=== PATIENT | male | born 1960 | race Caucasian/White ===

== ENCOUNTER → 2019-12-02 13:06 | Outpatient (BNVA) | payer OTHER, SELFPAY | PROVIDERS: PCP Family Medicine; Referring Provider Family Medicine; Visit Provider Orthopaedic Surgery | DX: M22.42 Chondromalacia patellae, left knee (principal); M25.562 Pain in left knee | CPT/HCPCS: 73560; 73565 ==

== ENCOUNTER 2019-12-07 14:28 | Outpatient (CLI) | payer OTHER, SELFPAY ==
--- NOTE | 2019-12-07 16:00 | MR_ITS ---
WS: [id number] MRI LEFT KNEE NONCONTRAST TECHNIQUE: Axial PD, coronal PD fat sat, coronal PD, sagittal PD, and sagittal PD fat-sat images obta ined. CLINICAL INFORMATION: pain COMPARISON: None. FINDINGS: Distal quadriceps and patella tendons are intact. Hypertrophic patella. Anterior cruciate ligament is intact. Normal PCL. Mild to moderate chronic thinning of the medial and lateral meniscus. No acute a ppearing meniscal tears No edema in the tibial plateau. 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 Moderate cho ndromalacia lateral joint compartment. Advanced chondromalacia patella. No subchondral edema. Chondro malacia worse in the lateral patella facet. Medial and lateral collateral ligaments are intact. Hypertrophic changes along the joint line. Normal popliteal fossa. MR/MR knee LT wo con* [id number] IMPRESSION: 1. Anterior and posterior cruciate ligaments are intact. 2. Mild to moderate chronic thinning of the medial and lateral meniscus. No ac alda appearing meniscal tears. 3. Advanced chondromalacia patella worse involving the lateral patella facet. 4. Moderate degenerative narrowing involving the medial and lateral joint comp artments with advanced chondromalacia worse involving the medial joint compartm ent. 5. Medial and lateral collateral ligaments appear intact.
== END 2019-12-07 14:29 | disposition home or self-care (01) ==
LOC: RADSHAW 14:29
PROVIDERS: PCP Family Medicine; Visit Provider Orthopaedic Surgery
DX: M22.42 Chondromalacia patellae, left knee (principal); M25.562 Pain in left knee
CPT/HCPCS: 73721

== ENCOUNTER → 2020-11-27 10:19 | Outpatient (BNVA) | payer OTHER, SELFPAY | PROVIDERS: PCP Family Medicine; Referring Provider Emergency Medicine Emergency Medical Services; Visit Provider Orthopaedic Surgery | DX: M16.0 Bilateral primary osteoarthritis of hip (principal); M25.551 Pain in right hip | CPT/HCPCS: 73502 ==

== ENCOUNTER 2022-05-07 16:12 | Emergency (ER) | payer OTHER, SELFPAY ==
[2022-05-07 17:17] VITALS: BP 174/97; PULSE 84; RESP 18; TEMP 36.6; O2SAT 96; BMI 30.7
--- NOTE | 2022-05-07 17:46 | ED_ITS ---
HPI - Back Pain/Injury General: Chief Complaint: Back Pain/Injury Stated Complaint: back pain Time Seen by Provider: 05/07/22 17:45 History of Present Illness: 61-year-old male patient comes in today for complaints of injury to the mid to low back. Patient reports on Friday he had fallen off his 4 phipps and since then has had some mid back pain. Patient reports some occasional back pain but nothing chronic and no surgeries. Patient denies any loss of bowel or bladder control. Review of Systems General: Reports: 10 or more systems reviewed and unremarkable except in HPI and below Musc: Reports: back pain; Denies: neck pain PFS ED PFSH: Family History Mother Diabetes Father Brain aneurysm Social History Smoking and tobacco status: never smoked Alcohol intake: never Physical Exam Const: COMMON NORMALS: alert Neck/C-Spine: COMMON NORMALS: full ROM Resp: COMMON NORMALS: normal respiratory effort and clear to auscultation bilaterally AUSCULTATION: clear to auscultation bilaterally Cardio: COMMON NORMALS: regular rate RATE: regular rate Back/Pelvis: THORACIC SPINE/UPPER BACK: Yes thoracic spinal tenderness and Yes paraspinal muscle tenderness LUMBAR SPINE/LOWER BACK: Yes lumbar spinal te nderness and Yes paraspinal muscle tenderness Extremity: COMMON NORMALS: normal to inspection Neuro: SENSORIUM/ORIENTATION: Yes alert Skin: COMMON NORMALS: no rashes or lesions noted GENERAL SKIN EXAM: no rashes or lesions noted Course Vital Signs: Vital signs: Vital Signs Temperature 98 F 05/07/22 17:17 Pulse Rate 84 05/07/22 17:17 Respiratory Rate 18 05/07/22 17:17 Blood Pressure 174/97 05/07/22 17:17 Pulse Oximetry 96 05/07/22 17:17 MDM - Back Pain/Injury Medical Decision Making 61-year-old male patient comes in today with mid to low back pain. Patient reports falling off his 4 phipps on Friday and since then has had mid to low back pain. Patient does have a history of back pain but no history of surgeries or other injuries. On exam patient has tenderness along the lower thoracic and and lumbar spine. Muscle tenderness is also noted. Vital signs are normal. Patient denies any loss of bowel or bladder control. Differential diagnosis includes contusion, fracture, intervertebral disc disease, facet arthropathy. X-rays noted no acute vertebral fracture. X-rays will be reviewed by radiologist. Patient was recommended to follow-up with primary care for further treatment. Patient reported understanding of care plan and need for follow-up or return to the ER. Discharge Plan Discharge Patient Disposition: Home Clinical Impression: Contusion of back Qualifiers: Encounter type: initial encounter Laterality: unspecified laterality Qualified Code(s): S20.229A - Contusion of unspecified back wall of thorax, initial encounter Condition: Stable Prescriptions: New diclofenac sodium 75 mg tablet,delayed release (DR/EC) 75 mg PO BID Qty: 20 0RF hydrocodone-acetaminophen 5-325 mg tablet 1 tab PO Q6H PRN (Reason: pain (scale score 7-10)) Qty: 10 0RF No Action betamethasone acet,sod phos [Celestone Soluspan] 6 mg/mL suspension 6 mg INTRA-NIELS ONCE Qty: 1 0RF bupivacaine (PF) 0.5 % (5 mg/mL) solution 5 mg INTRA-NIELS ONCE Qty: 2 0RF lidocaine (PF) 10 mg/mL (1 %) solution 10 mg INTRA-NIELS ONCE Qty: 2 0RF metformin PO 0RF glipizide PO 0RF cholecalciferol (vitamin D3) PO 0RF hydrocodone-acetaminophen PO 0RF betamethasone acet,sod phos [Celestone Soluspan] 6 mg/mL suspension 6 mg intra-articular ONCE Qty: 1 0RF lidocaine (PF) 10 mg/mL (1 %) solution 10 mg intra-articular ONCE Qty: 2 0RF ropivacaine (PF) 5 mg/mL (0.5 %) solution 2 ml intra-articular ONCE Qty: 2 0RF Discharge Orders: Discharge ED (Routine); Ordered 05/07/22 Ordered By: Wayne Marsh Referrals: Wayne Nelson [Primary Care Provider] - Discharge Diet: Usual diet Discharge Activity: Increase activity as tolerated Patient Instructions: Back Pain (ED), Opioid Safety Activity Restrictions/Additional Instructions: Activity as tolerated. Gentle stretching and range of motion exercises. Avoid heavy lifting or straining of the back. Drink plenty of water with medication. Follow-up with primary care for further instruction. Return to ER for new concerns. Stand Alone Forms: Work/School Release Coding Level of Care Code ED Trimmer Buffing Wheel for Katiuska Fwd Exam Detailed
--- NOTE | 2022-05-07 18:23 | XRR_ITS ---
PROCEDURE INFORMATION: Exam: XR Thoracic Spine Exam date and time: 05/07/2022 6:26 PM Age: 61 years old Clinical indication: Injury or trauma; Fall; Blunt trauma (contusions or hematomas) TECHNIQUE: Imaging protocol: Radiologic exam of the thoracic spine. Views: 3 views. COMPARISON: DX XR lumbar spine 2-3V* [id number] 07/18/2020 11:23 AM FINDINGS: Bones/joints: Normal. No acute fracture. Normal alignment. Soft tissues: Unremarkable. XR/XR thoracic spine 3V* [id number] IMPRESSION: No acute findings.
--- NOTE | 2022-05-07 18:23 | XRR_ITS ---
PROCEDURE INFORMATION: Exam: XR Lumbosacral Spine Exam date and time: 05/07/2022 6:35 PM Age: 61 years old Clinical indication: Injury or trauma; Fall; Blunt trauma (contusions or hematomas) TECHNIQUE: Imaging protocol: Radiologic exam of the lumbosacral spine. Views: 2 or 3 views. COMPARISON: DX XR lumbar spine 2-3V* [id number] 07/18/2020 11:23 AM FINDINGS: Bones/joints: Mild rightward curvature. The vertebral body stature appears intact. No definite fracture. Soft tissues: Unremarkable. Vasculature: Arterial calcifications. XR/XR lumbar spine 2-3V* [id number] IMPRESSION: No acute findings.
[2022-05-07 19:08] VITALS: RESP 16
== END 2022-05-07 19:09 | disposition home or self-care (01) ==
PROVIDERS: Emergency Provider Nurse Practitioner Family; PCP Family Medicine
DX: S20.229A Contusion of unspecified back wall of thorax, initial encounter (principal); V86.95XA Unspecified occupant of 3- or 4- wheeled all-terrain vehicle (ATV) injured in nontraffic accident, initial encounter
CPT/HCPCS: 72072; 72100; 99283

== ENCOUNTER 2023-11-24 11:53 | Emergency (ER) | payer OTHER, SELFPAY ==
[2023-11-24 11:59] VITALS: BP 177/115; PULSE 83; RESP 16; TEMP 36.7; O2SAT 97; BMI 29.9
--- NOTE | 2023-11-24 12:11 | CT_ITS ---
WS: [id number] CT HEAD NONCONTRAST HISTORY: Symptoms of acute stroke TECHNIQUE: Contiguous axial imaging performed through the brain in 2.5 mm imaging. Bone and soft tiss ue windows. Sagittal and coronal reformats reviewed. All CT scans at [facility] use at least one of these dose optimization techniques: automated exposure control; mA and/or kV adjustment per pa tient size (includes targeted exams where dose is matched to clinical indication); or iterative recon struction. DLP: 1084.31 mGy COMPARISON: None available. No acute intracranial hemorrhage, midline shift or mass effect. Mild atrophy and small vessel ischemic disease. Mild cerebellar atrophy. Ventricles: Normal size with no hydrocephalus. Scattered atherosclerotic plaque and calcifications to the cavernous carotid arteries. Additional justin que in the middle cerebral arteries. Paranasal sinuses: As visualized are clear. Mastoid air cells: Well pneumatized. Calvarium and scalp: Skull is intact with no soft tissue edema or swelling. IMPRESSION: 1. No acute intracranial hemorrhage or edema. 2. Mild atrophy and small vessel ischemic disease. 3. Atherosclerotic plaque noted in the distal carotid arteries and a few foci of plaque also in the middle cerebral arteries. No acute infarct identified.
--- NOTE | 2023-11-24 12:24 | ECG_ITS ---
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 Measurements Intervals [place] Rate: 79 P: 17 RI: 152 QRS: -22 QRSD: 85 T: 5 QT: 356 QTc: 409 Interpretive Statements SINUS RHYTHM BORDERLINE LEFT AXIS DEVIATION [QRS AXIS < -20] No previous ECG available for comparison Electronically Signed On 11-24-2023 14:19:11 COLOR TESTER by Neel Bhatti M.D. [id number]
[2023-11-24 12:30] VITALS: BP 151/86; PULSE 83; O2SAT 93
[2023-11-24 12:33] LABS: Basophils # 0.1 10^3/uL (0.0-0.1); Basophils % 0.8 %; Eosinophils # 0.3 10^3/uL (0.0-0.8); Eosinophils % 3.1 %; Lymphocytes # 1.6 10^3/uL (0.8-4.8); Lymphocytes % 17.7 %; Mean Corpuscular HGB Conc 34.7 g/dL (30-55); Mean Corpuscular Hemoglobin 30.9 pg (27-33); Mean Corpuscular Volume 89.1 fl (82-101); Mean Platelet Volume 9.4 fL (7.4-10.4); Monocytes # 0.6 10^3/uL (0.2-0.9); Monocytes % 7.1 %; Neutrophils # 6.34 10^3/uL (1.8-7.7); Nucleated Red Blood Cells % 0 %; Platelet Count 226 10^3/cmm (157-399); Red Blood Count 5.05 10^6/uL (3.85-5.65); Red Cell Distribution Width 11.7 % (12.1-15.1); White Blood Count 8.93 10^3/uL (3.29-11.43)
--- NOTE | 2023-11-24 12:37 | ED_ITS ---
HPI - Neuro Symptoms/Deficit 2 General: Chief Complaint: Weakness Stated [place] [facility] Time Seen by Provider: 11/24/23 12:11 Source: patient Mode of arrival: ambulatory History of Present Illness: 63-year-old male presents emergency room with complaint of difficulty with seeing in his left eye disorientation like symptoms he states he has had this for the last couple of days is actually quite a bit better now than it was when it began 2 days ago. His vision is improved. He is not on any anticoagulants he does take baby aspirin daily. He also has some difficulty with gait and balance that also has improved Onset (ago): day(s) (2) Timing confirmed by: spouse Location: ataxia and other (Vision particular the left eye) History of same: No Severity: moderate Quality: weak Relieving factors: none Exacerbating factors: none Associated symptoms: Deny chest pain, cough, diaphoresis, fevers/chills, headache(s), anorexia, malaise, nausea, seizures, short of breath, syncope, tingling, vertigo, vomiting or weakness Treatments Prior to Arrival: none Review of Systems 2 Const: Denies: fever(s), chills, malaise or diaphoresis Eyes: Reports: change in vision Card: Denies: chest pain or syncope Resp: Denies: dyspnea GI: Denies: abdominal pain, nausea or vomiting : Denies: dysuria, urinary frequency or urinary urgency Musc: Denies: neck pain or back pain Skin/Breast: Denies: rash Neuro: Denies: headache(s) or vertigo PFSH ED 2 PFSH: Family History Mother Diabetes Father Brain aneurysm Social History Smoking and tobacco/nicotine status: never used tobacco/nicotine Alcohol intake: never Substance/Drug Use: never NIH stroke score 2 NIHSS: Level Of Consciousness - 1a: 0 Level Of Consciousness Questions - 1b: Both Correct Level Of Consciousness Commands - 1c: Both Correct Best Gaze - 2: Normal Visual Flowers - 3: No Visual Loss Facial Palsy - 4: N ormal Motor Arm Right - 5: No Drift Motor Arm Left - 5: No Drift Motor Leg Right - 6: No Drift Motor Leg Left - 6: No Drift Limb Ataxia - 7: A bsent Sensory - 8: Normal Best Language - 9: No Aphasia Dysarthia - 10: Normal Extinction And Inattention - 11: 0 Score: Total Score: 0 Physical Exam 2 Const: COMMON NORMALS: no acute distress GENERAL APPEARANCE: cooperative and comfortable ORIENTATION/CONSCIOUSNESS: Yes awake, Yes oriented to person, Yes oriented to place and Yes oriented to time HENMT: COMMON NORMALS: normocephalic, atraumatic and hearing grossly normal bilaterally HEAD & SCALP: normocephalic and atraumatic Resp: COMMON NORMALS: normal respiratory effort, No retractions, No use of accessory muscles and clear to auscultation bilaterally AUSCULTATION: clear to auscultation bilaterally Cardio: COMMON NORMALS: regular rate, regular rhythm and No murmurs present (Cardio) RATE: regular rate RHYTHM: regular rhythm GI: COMMON NORMALS: Soft to palpation and No hepatosplenomegaly present A USCULTATION: Yes normoactive bowel sounds PALPATION: Yes Soft to palpation, No Tenderness to palpation present (GI), No Guarding due to palpation present (GI) and Yes No hepatosplenomegaly present Extremity: COMMON NORMALS: normal to inspection, capillary refill normal, no clubbing, cyanosis or edema, no calf tenderness and no pedal edema Neuro: SENSORIUM/ORIENTATION: Yes oriented to person, Yes oriented to place and Yes oriented to time Skin: COMMON NORMALS: no rashes or lesions noted GENERAL SKIN EXAM: no rashes or lesions noted Course 2 Vital Signs: Vital signs: Vital Signs Temperature 98.0 F 11/24/23 11:59 Pulse Rate 99 11/24/23 15:30 Respiratory Rate 16 11/24/23 11:59 Blood Pressure 129/97 11/24/23 15:30 Pulse Oximetry 95 11/24/23 15:30 Oxygen Delivery Me thod Room Air 11/24/23 15:30 MDM - Neuro Symptoms/Deficit Medical Decision Making While waiting for workup to complete symptoms recurred and then about 30 to 40 minutes later resolved again. During the time he had the symptoms she had complete loss of his temporal visual field in his left eye only. Then it resolved without any intervention. He had no pain during this time either. Reviewed the case with on-call neurology. He is outside of any window treatment does not have any specific thrombosis. 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 Will put him on dual antiplatelet therapy continue his statin therapy set him up for an outpatient MRI and follow-up with neurology additionally we talked on-call ophthalmology to set up a consultation this afternoon for further evaluation. By the time of discharge all of his symptoms had completely resolved Medical Records I reviewed the patient's medical records. Lab Data I reviewed the patient's lab results. 11/24/23 12:11/24/23: Laboratory Results WBC 8.93 10^3/uL (3.29-11.43) 11/24/23 12: RBC 5.05 10^6/uL (3.85-5.65) 11/24/23: Hgb 15.60 g/dL (11.27-16.99) 11/24/23: Hct 45.0 % (37-53) 11/24/23: MCV 89.1 fl (82-101) 11/24/23: MCH 30.9 pg (27-33) 11/24/23: MCHC 34.7 g/dL (30-55) 11/24/23: RDW 11.7 % (12.1-15.1) L 11/24/23: Plt Count 226 10^3/cmm (157-399) 11/24/23: MPV 9.4 fL (7.4-10.4) 11/24/23: Neut % (Auto) 71.0 % 11/24/23: Lymph % (Auto) 17.7 % 11/24/23: Leake % (Auto) 7.1 % 11/24/23: Eos % (Auto) 3.1 % 11/24/23: Baso % (Auto) 0.8 % 11/24/23: Neut # (Auto) 6.34 10^3/uL (1.8-7.7) 11/24/23: Lymph # (Auto) 1.6 10^3/uL (0.8-4.8) 11/24/23: Leake # (Auto) 0.6 10^3/uL (0.2-0.9) 11/24/23: Eos # (Auto) 0.3 10^3/uL (0.0-0.8) 11/24/23 12: Baso # (Auto) 0.1 10^3/uL (0.0-0.1) 11/24/23 12: Nucleated RBC % (auto) 0 % 11/24/23 12: Nucleated RBCs # 0.0 /100WBC 11/24/23 12: PT 13.30 SECONDS (12.1-14.9) 11/24/23 12: INR 0.98 (0.8-1.2) 11/24/23 12: APTT 23.4 SECONDS (23.9-36.7) L 11/24/23 12: Sodium 135 mmol/L (136-145) L 11/24/23 12: Potassium 4.3 mmol/L (3.5-5.1) 11/24/23 12: Chloride 96 mmol/L (98-107) L 11/24/23 12: Carbon Dioxide 25 mmol/L (22-29) 11/24/23 12: Anion Gap 18.3 (5-19) 11/24/23 12: BUN 18 mg/dL (8-23) 11/24/23 12: Creatinine 0.9 mg/dL (0.7-1.2) 11/24/23 12: GFR Calculation 85.2 mL/min (90-130) L 11/24/23 12: Glucose 334 mg/dL (65-115) H 11/24/23 12: POC Glucose 360 mg/dL (70-110) H 11/24/23 13:01 Calculated Osmolality 295 mOsm/kg (285-295) 11/24/23 12: Calcium 9.4 mg/dL (8.5-10.5) 11/24/23 12: Total Bilirubin 0.5 mg/dL (0.15-1.2) 11/24/23 12: AST 15 U/L (0-40) 11/24/23 12: ALT 18 U/L (0-41) 11/24/23 12: Alkaline Phosphatase 101 U/L (40-130) 11/24/23 12: C-Reactive Protein 5.8 mg/L (0.0-4.9) H 11/24/23 12: Total Protein 7.5 g/dL (6.6-8.7) 11/24/23 12: Albumin 4.5 g/dL (3.5-5.2) 11/24/23 12: Globulin 3.0 g/dL (1.3-4.6) 11/24/23 12:27 Urine Color Yellow (Yellow) 11/24/23 14:09 Urine Appearance Clear (CLEAR) 11/24/23 14:09 Urine pH 5 (5-7) 11/24/23 14:09 Ur Specific [place] 1.015 (1.005-1.030) 11/24/23 14:09 Urine Protein Neg (Negative) 11/24/23 14:09 Urine Glucose (UA) 4+ (Normal) H 11/24/23 14:09 Urine Ketones 1+ (Negative) H 11/24/23 14:09 Urine Blood Neg (Negative) 11/24/23 14:09 Urine Nitrate Negative (Negative) 11/24/23 14:09 Urine Bilirubin Neg (Negative) 11/24/23 14:09 Urine Urobilinogen Norm mg/dL (Negative) 11/24/23 14:09 Ur Leukocyte Esterase Negative (Negative) 11/24/23 14:09 Urine Opiates Screen Positive ng/mL (Negative) H 11/24/23 14:09 Ur Barbiturates Screen Negative ng/mL (Negative) 11/24/23 14:09 Ur Phencyclidine Scrn Negative ng/mL (Negative) 11/24/23 14:09 Ur Amphetamines Screen Negative ng/mL (Negative) 11/24/23 14:09 U Benzodiazepines Scrn Negative ng/mL (Negative) 11/24/23 14:09 Urine Cocaine Screen Negative ng/mL (Negative) 11/24/23 14:09 U Marijuana (THC) Screen Negative ng/mL (Negative) 11/24/23 14:09 All radiology interpretation(s) finalized by discharge Discharge Plan Discharge Patient Disposition: Home Clinical Impression: Amaurosis fugax of left eye Condition: Stable Prescriptions: New aspirin 81 mg tablet,delayed release (DR/EC) 81 mg PO DAILY Qty: 30 0RF Plavix 75 mg tablet 75 mg PO DAILY Qty: 30 0RF No Action diclofenac sodium [Arthritis Pain (diclofenac)] 1 % gel See Rx Instructions .ROUTE .COMPLEX PRN (Reason: Pain) Rx Instructions: APPLY 4 GRAMS TO AFFECTED AREAS TOPICALLY 4 TIMES DAILY FOR PAIN/INFLAMMATION. NOT MORE THAN 16 GRAMS DAILY TO ANY LOWER EXTREMITY JOINT. MAX 32 GRAMS PER DAY OVER ALL JOINTS. MEASURE DOSE WITH RULER ATTACHED INSIDE BOX. lidocaine 5 % ointment 1 applic topical BID rosuvastatin 40 mg tablet 40 mg PO QPM pramipexole 1 mg tablet 1 mg PO BEDTIME glipizide 10 mg tablet 20 mg PO BID hydrocodone-acetaminophen 7.5-325 mg Tablet 1 tab PO Q8H PRN (Reason: Pain) Pain Relieving (m-salic-men) 15-1 % cream 1 applic TOPICAL TID PRN (Reason: MUSCLE DISCOMFORT/PAIN) insulin glargine-yfgn 100 unit/mL (3 mL) Insulin Pen 10 unit SUBCUT QAM Discharge Orders: Discharge ED (Routine); Ordered 11/24/23 Ordered By: Jorge Martinez Referrals: Scott Rivas MD [Physician] - Wayne Nelson [Primary Care Provider] - Discharge Diet: Usual diet Discharge Activity: Resume usual activity Patient Instructions: Opioid Safety, Pain Management Activity Restrictions/Additional Instructions: Thank you for choosing [facility] for your healthcare needs today. Please realize this is an emergency room and that we are providing you with a medical screening exam and this may not be complete and all inclusive of all the testing and or work up that you may need to determine your ailment or severity of your illness. It is very important that you follow up as instructed or that you return to the Emergency Department should you have concerns or if your condition changes or worsens in any way. After leaving the emergency room you should proceed to Dr. Rivas's office they will evaluate your eye for any retinal abnormalities. We did discuss your case with on-call neurology they recommend an outpatient MRI starting Plavix and aspirin continuing your Crestor. They will follow-up with you after the MRI is completed Coding Level of Care Code ED Academic Coordinator for Katiuska Jennings
[2023-11-24 12:43] LABS: INR 0.98 (0.8-1.2)
[2023-11-24 12:44] LABS: Partial Thromboplastin Time 23.4 SECONDS (23.9-36.7)
[2023-11-24 12:49] LABS: Alanine Aminotransferase 18 U/L (0-41); Albumin Level 4.5 g/dL (3.5-5.2); Alkaline Phosphatase 101 U/L (40-130); Anion Gap 18.3 (5-19); Aspartate Amino Transferase 15 U/L (0-40); Blood Urea Nitrogen 18 mg/dL (8-23); Calcium 9.4 mg/dL (8.5-10.5); Carbon Dioxide 25 mmol/L (22-29); Chloride 96 mmol/L (98-107); Glomerular Filtration Rate 85.2 mL/min (90-130); Glucose 334 mg/dL (65-115); Osmolality Calculated 295 mOsm/kg (285-295); Potassium 4.3 mmol/L (3.5-5.1); Sodium 135 mmol/L (136-145); Total Bilirubin 0.5 mg/dL (0.15-1.2); Total Protein 7.5 g/dL (6.6-8.7)
--- NOTE | 2023-11-24 12:52 | PC.PHAR ---
[facility] IS [facility] 11/24/23 12:50PM
[2023-11-24 13:00] VITALS: BP 150/95; PULSE 86; O2SAT 94
[2023-11-24 13:04] LABS: Glucose Point of Care 360 mg/dL (70-110)
--- NOTE | 2023-11-24 13:36 | CT_ITS ---
WS: [id number] CT ANGIOGRAM CEREBRAL AND CAROTID ARTERIES HISTORY: vision loss TECHNIQUE: CT angiogram is performed of the carotid and cerebral arteries. During arterial injection imaging is obtained from the skull vertex to the aortic arch in 1.25 mm imaging. Coronal and sagittal reformats are submitted. Additional multi planar reformats of the carotid and cerebral arteries are submitted, MIP imaging also reviewed. NASCET criteria utilized. [facility] at least one of these dose optimization techniques: automated exposure control; mA and/or kV adjust ment per patient size (includes targeted exams where dose is matched to clinical indication); or iter ative reconstruction. CONTRAST: Omnipaque 350; 100 mL IV. DLP: 466.68 mGy.cm COMPARISON: None available. Carotid Angiogram: Right carotid: Common carotid artery: Arises normally from the innominate artery. No significant plaque or stenosis. Internal carotid artery: Very small amount of plaque at the bifurcation but no stenosis. External carotid artery: Patent. Left carotid: Common carotid artery: Arises from the innominate. Otherwise normal with no stenosis. Internal carotid artery: Minimal plaque in the proximal ICA. External carotid artery: Patent. Right vertebral artery: Very small caliber LEFT vertebral artery. Distally the vertebral artery may b e occluded near the foramen magnum. There is reconstitution of flow just prior to the basilar artery. Left vertebral artery: Unremarkable. Arises normally from the subclavian artery. Subclavian arteries: No stenosis or significant abnormality. Upper thorax: Centrilobular emphysema at the lung apices. Atherosclerotic plaque within the aorta. Thyroid gland: Normal. Osseous structures: Degenerative spondylitic disc disease. CEREBRAL ANGIOGRAM: Intracranial vertebral arteries: Very small caliber and intermittently visualize distal LEFT vertebra l artery. Reconstitution of the vertebral artery proximal to the basilar artery. LEFT vertebral arter y is dominant. Normal basilar artery. Basilar artery: No significant stenosis or occlusion. No aneurysm. Intracranial Internal carotid arteries: Heavy calcified plaque through the cavernous and supraclinoid carotid arteries. Stenosis estimated approximately 50 to 60% bilaterally. Middle cerebral arteries: Mild plaque. No stenosis. Anterior cerebral arteries and ACOM: Normal. Posterior cerebral arteries and PCOM's: Normal. Dural venous sinuses are normally enhancing. Mastoid air cells: Normal. Paranasal sinuses: Normal. Calvarium: Normal. IMPRESSION: 1. Cervical carotid arteries are patent without significant atherosclerotic plaque. 2. Moderate amount of calcified plaque through the intracranial cavernous carotid and supraclinoid c arotid arteries. Stenosis estimated at approximately 50 to 60% bilaterally. No complete occlusion. 3. High-grade stenosis versus occlusion in the distal RIGHT vertebral artery near the foramen magnum with reconstitution distally. 4. Minimal atherosclerotic change in the middle cerebral arteries. No aneurysms or occlusion.
[2023-11-24] MEDS: iohexol 350 mg/mL 500 mL Btl (per mL) IV (13:53)
[2023-11-24 14:11] VITALS: BP 164/98; PULSE 77; O2SAT 95
[2023-11-24 14:13] LABS: Add Urine Microscopic? NO; Charge for UA Resulting for Rev
[2023-11-24 14:23] LABS: Bilirubin Urine Neg (Negative); Blood Urine Neg (Negative); Glucose Urine UA 4+ (Normal); Ketones Urine 1+ (Negative); Leukocyte Esterase Urine Negative (Negative); Nitrate Urine Negative (Negative); Protein Urine Neg (Negative); Specific Gravity, Urine 1.015 (1.005-1.030); Urine Appearance Clear (CLEAR); Urine Color Yellow (Yellow); Urobilinogen Urine Norm (Negative); pH Urine 5 (5-7)
[2023-11-24 14:28] LABS: Amphetamines Screen Urine Negative (Negative); Barbiturates Screen Urine Negative (Negative); Benzodiazepines Screen Urine Negative (Negative); Cocaine Screen Urine Negative (Negative); Opiate Screen Urine Positive (Negative); PCP Screen Urine Negative (Negative); THC Screen Urine Negative (Negative)
[2023-11-24] MEDS: insulin regular-human 100 units/1 mL 10 UNIT IVP (15:08)
[2023-11-24 15:11] VITALS: BP 152/98; PULSE 89; O2SAT 96
[2023-11-24 15:30] VITALS: BP 129/97; PULSE 99; O2SAT 95
[2023-11-24 16:08] LABS: C Reactive Protein 5.8 mg/L (0.0-4.9)
== END 2023-11-24 16:15 | disposition home or self-care (01) ==
PROVIDERS: Emergency Provider Family Medicine; PCP Family Medicine
DX: G45.3 Amaurosis fugax (principal); Z79.4 Long term (current) use of insulin; Z79.84 Long term (current) use of oral hypoglycemic drugs
CPT/HCPCS: 36416; 70450; 70496; 70498; 80053; 80306; 81003; 82962; 85025; 85610; 85730; 86140; 93005; 96374; 99285; J1815; Q9967

== ENCOUNTER 2024-01-01 12:20 | Outpatient (CLI) | payer OTHER, SELFPAY ==
--- NOTE | 2024-01-01 12:25 | USCV_ITS ---
Lencho Wiseman Age: 63 Gender: M : 1960 Exam Date: 01/01/2024 13:11 Ordering Phys: Whit Geronimo MD Technologist: KWABENA [place]am [place] [facility] [place] Indication: F/U ER visit for stroke symptoms Risk Factors: Previous Vascular Surgery: Right Brachial BP: / Left Brachial BP: / Right Left Velocity (cm/s) Spectral Plaque Velocity (cm/s) Spectral Plaque Syst/Diast Broadening Syst/Diast Broadening 95.00/ 23.10 Prox CCA 74.80 / 28.10 83.10/ 19.20 Mid CCA 76.00 / 28.00 57.50/ 17.30 Distal CCA 63.90 / 22.80 45.40/ 14.20 Prox ICA 52.70 / 23.20 54.90/ 18.30 Mid ICA 43.70 / 13.20 64.40/ 26.30 Distal ICA 46.90 / 16.40 101.90 ECA 91.70 1.10 ICA/CCA 0.80 Antegrade Vertebral Antegrade 30.50/ 10.20 cm/s 50.10/ 21.20 cm/s Tri Subclavian Tri 67.10 58.30 CONCLUSIONS Right ICA stenosis <50%. Mild atheromatous plaque right carotid bulb/ICA. Left ICA stenosis <50%. Mild atheromatous plaque left carotid bulb/ICA. Normal antegrade Doppler flow noted in the right vertebral artery. Normal antegrade Doppler flow noted in the left vertebral artery. Rio Lagos MD (Electronically Signed) Final Date: 01 January 2024 14:16 S
== END 2024-01-01 12:21 | disposition home or self-care (01) ==
LOC: RAD 12:21
PROVIDERS: PCP Family Medicine; Visit Provider Family Medicine
DX: Z01.89 Encounter for other specified special examinations (principal); I65.23 Occlusion and stenosis of bilateral carotid arteries
CPT/HCPCS: 93880

== ENCOUNTER → 2024-06-29 08:50 | Outpatient (BNVA) | payer OTHER, SELFPAY | PROVIDERS: PCP Family Medicine; Referring Provider Family Medicine; Visit Provider Psychiatry & Neurology Neurology | DX: I63.9 Cerebral infarction, unspecified (principal); G45.3 Amaurosis fugax; Z79.01 Long term (current) use of anticoagulants; Z79.02 Long term (current) use of antithrombotics/antiplatelets | CPT/HCPCS: 99203; 99204 ==

== ENCOUNTER 2024-07-28 07:38 | Outpatient (CLI) | payer OTHER, SELFPAY ==
--- NOTE | 2024-07-28 07:15 | MR_ITS ---
WS: [id number] MRA HEAD TECHNIQUE: Axial 3-D TOF images obtained with axial images and axial, sagittal, and coronal 2-D refor matted images. CLINICAL INFORMATION: I63.9 - Cerebral infarction, unspecified COMPARISON: CT head 11/24/2023 FINDINGS: Mild intracranial atheromatous disease. Approximate 50% stenosis of the supraclinoid ICAs bilaterally . Both ICAs are patent at the skull base. Small A1 segments. Moderate focal stenosis RIGHT proximal A 1 segment. Normal vascularity to the YAMILE territory. Normal vascularity to the MCA territories bilater ally. No evidence of high-grade proximal stenosis. LEFT dominant distal vertebral artery. Tiny distal RIGHT vertebral artery contribution. Basilar arter y is patent. Normal vascularity to the [employer] territory bilaterally. MR/MR angio head wo con [id number] IMPRESSION: 1. Mild intracranial atheromatous disease. 2. Approximate 50% stenosis of the supraclinoid ICAs bilaterally. 3. Dominant distal LEFT vertebral artery. 4. Small A1 segments bilaterally. Moderate focal stenosis RIGHT A1 origin. 5. No high-grade proximal flow-limiting intracranial stenosis.
--- NOTE | 2024-07-28 07:15 | MR_ITS ---
WS: [id number] MRA CAROTID WITHOUT AND WITH GADOLINIUM ENHANCEMENT TECHNIQUE: Axial 2-D TOF and gadolinium bolus images obtained with axial images and axial, sagittal, and coronal 2-D reformatted images. CLINICAL INFORMATION: I63.9 - Cerebral infarction, unspecified COMPARISON: CTA 11/24/2023 FINDINGS: Images degraded by motion artifact. RIGHT: RIGHT common carotid artery is patent. No significant RIGHT ICA stenosis. Tortuous RIGHT cervi silvina ICA. RIGHT ICA is patent to the skull base. LEFT: LEFT common carotid artery is patent. No significant LEFT ICA stenosis. LEFT ICA is patent to t he skull base. LEFT dominant vertebral artery. Small RIGHT vertebral artery with high-grade stenosis/occlusion intra cranially. This reconstitutes distally with a small contribution to the basilar artery. Proximal subclavian arteries are patent. Normal branching aortic arch anatomy. MR/MR angio neck w con* [id number] IMPRESSION: 1. Less than 50% ICA stenosis bilaterally. 2. LEFT dominant vertebral artery. 3. 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 This reconstitutes distally. 4. Proximal subclavian arteries are patent.
--- NOTE | 2024-07-28 08:00 | MR_ITS ---
WS: [id number] MRI HEAD WITH CONTRAST TECHNIQUE: Sagittal T1, T2 axial, T2 axial FLAIR, axial susceptibility weighted imaging, axial diffus ion weighted images, and coronal T2 images were obtained. Pre and post-T1 axial and post T1 coronal i mages. ADC and FSPGR images. CLINICAL INFORMATION: I63.9 - Cerebral infarction, unspecified COMPARISON: None. FINDINGS: No evidence of restricted diffusion to suggest acute ischemia. Ventricular system and basal cisterns are patent. Mild small vessel changes. Moderate parenchymal volume loss. Normal posterior fossa. Normal vascular flow voids at the skull base. Mild mucosal thickening in the paranasal sinuses. Mastoid air cells are well aerated. No hemosiderin on susceptibility-weighted images. Temporal lobes and hippocampal formations are normal in appearance. No abnormal gadolinium enhancemen t. Normal dural venous sinuses. Incidental venous espinosa RIGHT parietal calvarium. MR/MR head wo/w con [id number] IMPRESSION: 1. No evidence of restricted diffusion to suggest acute ischemia. 2. Mild small vessel changes. Moderate parenchymal volume loss. 3. No hemosiderin on susceptibility-weighted images. 4. Temporal lobes and hippocampal formations are normal in appearance. 5. No abnormal gadolinium enhancement.
== END 2024-07-28 07:39 | disposition home or self-care (01) ==
PROVIDERS: PCP Family Medicine; Visit Provider Psychiatry & Neurology Neurology
DX: I63.9 Cerebral infarction, unspecified (principal); G31.89 Other specified degenerative diseases of nervous system; I65.01 Occlusion and stenosis of right vertebral artery; I65.23 Occlusion and stenosis of bilateral carotid arteries; I66.11 Occlusion and stenosis of right anterior cerebral artery
CPT/HCPCS: 70544; 70548; 70553